=== PATIENT | female | born 1995 | race Caucasian/White ===

== ENCOUNTER 2019-06-09 12:36 | Emergency (ER) | payer MEDICAID ==
--- NOTE | 2019-06-09 12:58 | EDM.PDOC ---
ED HPI GENERAL MEDICAL PROBLEM - General Stated Complaint: HURT LEFT FOOT Time Seen by Provider: 06/09/19 12:57 Source of Information: Reports: Patient History Limitations: Reports: No Limitations - History of Present Illness INITIAL COMMENTS - FREE TEXT/NARRATIVE: 24-year-old female reports that she was going to get up off of her ottoman at approximately noon today and she went to step on her left foot and is judged the height that she had to go down 2 feet and stepped on awkwardly and twisted foot and ankle and fell forward catching himself with hands. She states that she had immediate pain over the left foot and some in the left ankle and reports that pain is an 8/10. It is a constant cramping type pain with throbbing. No pain in her lower leg or knee. There were no other injuries. No head injury. No loss of consciousness. No back or neck pain. No open wounds. She presents via private vehicle. There are no other associated signs or symptoms. There are no other modifying factors. 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) Left Foot Pain Score (Numeric/FACES): 8 - Related Data Allergies Allergy/AdvReac Type Severity Reaction Status Date / Time No Known Allergies Allergy Verified 05/22/19 11:35 Home Meds: Home Meds Acetaminophen/HYDROcodone [Stroud 325-5 MG] 1 - 2 tab PO Q6H PRN #14 tab [Rx] Omeprazole 20 mg PO DAILY 06/09/19 [History] Past Medical History Gastrointestinal History: Reports: GERD - Past Surgical History HEENT Surgical History: Reports: Myringotomy w Tube(s) (As a child) Social & Family History - Tobacco Use Smoking Status *Q: Current Every Day Smoker - Alcohol Use Alcohol Use Frequency: Socially (On weekends) - Living Situation & Occupation Living situation: Reports: with Significant Other Occupation: Employed (Works for [employer]) Review of Systems - Review of Systems Review Of Systems: See Below Constitutional: Reports: No Symptoms Eyes: Reports: No Symptoms Ears: Reports: No Symptoms Nose: Reports: Congestion Mouth/Throat: Reports: No Symptoms Respiratory: Reports: No Symptoms Cardiovascular: Reports: No Symptoms GI/Abdominal: Reports: No Symptoms Genitourinary: Reports: No Symptoms Musculoskeletal: Reports: Foot Pain (Left foot), Other (Some left ankle pain) Skin: Reports: No Symptoms Neurological: Reports: No Symptoms ED EXAM, GENERAL - Physical Exam Exam: See Below Exam Limited By: No Limitations General Appearance: Alert, WD/WN, Mild Distress Eye Exam: Bilateral Eye: EOMI, Normal Inspection Ears: Normal External Exam, Hearing Grossly Normal Ear Exam: Bilateral Ear: Auricle Normal Nose: No Blood, Nasal Drainage Throat/Mouth: Normal Inspection, Normal Oropharynx, Normal Voice, No Airway Compromise Head: Atraumatic, Normocephalic Neck: Normal Inspection, Supple, Non-Tender, Full Range of Motion Respiratory/Chest: No Respiratory Distress, Lungs Clear, Normal Breath Sounds, No Accessory Muscle Use, Chest Non-Tender Cardiovascular: Normal Peripheral Pulses, Regular Rate, Rhythm, No Murmur Peripheral Pulses: 2+: Radial (L), Radial (R), Dorsalis Pedis (L) GI/Abdominal: Normal Bowel Sounds, Soft, Non-Tender, No Mass Back Exam: Normal Inspection, Full Range of Motion Neurological: Alert, Oriented, CN II-XII Intact, Normal Cognition, No Motor/ Sensory Deficits Skin Exam: Warm, Dry, Intact, Normal Color, No Rash Course - Vital Signs Last Recorded V/S: Last Vital Signs Temp 36.3 C 06/09/19 12:56 Pulse 84 06/09/19 12:56 Resp 16 06/09/19 12:56 BP 122/81 06/09/19 12:56 Pulse Ox 99 06/09/19 12:56 - Orders/Labs/Meds Orders: Active Orders 24 hr Category Date Time Status Ankle Min 3V Lt [CR] Stat Exams 06/09/19 13:06 Taken Foot Comp Min 3V Lt [CR] Stat Exams 06/09/19 13:06 Taken Meds: Medications Discontinued Medications Generic Name Dose Route Start Last Admin Trade Name Freq PRN Reason Stop Dose Admin Ibuprofen 800 mg 06/09/19 13:06 06/09/19 13:32 Motrin PO 06/09/19 13:07 800 mg ONETIME ONE Administration - Radiology Interpretation Free Text/Narrative:: X-ray of left ankle shows no definite fracture or dislocation. X-ray of left foot shows an oblique, mid shaft fracture of the left fifth metatarsal. - Re-Assessments/Exams Free Text/Narrative Re-Assessment/Exam: 06/09/19 13:55: Patient has a left fifth metatarsal fracture. I will place her in an orthotic boot and also place her on crutches with no weightbearing on her left foot. I did call us her case with Dianne Moscoso, FABRIZIO at [facility] and she will arrange for the patient to be seen by Dr. Martinez, zipper cutter at [facility]. I will also give the patient a prescription of hydrocodone 5/325 for more severe pain. Departure - Departure Time of Disposition: 14:10 Disposition: Home, Self-Care 01 Condition: Good Clinical Impression: Fracture of fifth metatarsal bone of left foot Qualifiers: Encounter type: initial encounter Fracture type: closed Fracture alignment: displaced Qualified Code(s): S92.352A - Displaced fracture of fifth metatarsal bone, left foot, initial encounter for closed fracture Fall as cause of accidental injury at home as place of occurrence Qualifiers: Encounter type: initial encounter Qualified Code(s): W19.XXXA - Unspecified fall, initial encounter; Y92.009 - Unspecified place in unspecified non- institutional (private) residence as the place of occurrence of the external cause - Discharge Information Prescriptions: Acetaminophen/HYDROcodone [Stroud 325-5 MG] 1 - 2 tab PO Q6H PRN #14 tab PRN Reason: Moderate to severe pain Instructions: Crutch Use, Adult, [id number], Metatarsal Fracture Referrals: Yeni Sargent MD [Primary Care Provider] - Forms: ED Return to Work/School Form Additional Instructions: You have a fracture of your left lateral foot. It is in the middle of the bone along the lateral aspect of your left foot and it is somewhat displaced. You need to use the crutches with no weightbearing on your left foot until cleared by your zipper cutter. Use the boot at all times unless you are cleaning your foot , ankle or leg. Elevate your left foot higher than your heart as often as possible. Apply ice packs intermittently to your left foot for the next 2-3 days. You may take ibuprofen 800 mg by mouth every 8 hours as needed for pain. Medication as prescribed for more severe pain (hydrocodone 5/325). You have an appointment with Dr. Martinez, zipper cutter at the orthopedic clinic on 2019 at 11:20 AM at the orthopedic department at [facility] at [address] if you need further help with directions or if questions, you can call . Back to the emergency department for redness, swelling or pain extending up the leg or any other concerning sign or symptom. Sepsis Event Note - Evaluation Sepsis Screening Result: No Definite Risk - Focused Exam Vital Signs: Vital Signs Temp Pulse Resp BP Pulse Ox 06/09/19 12:56 36.3 C 84 16 122/81 99 Date Exam was Performed: 06/09/19 Time Exam was Performed: 13:58 - My Orders Last 24 Hours: My Active Orders 06/09/19 13:06 Ankle Min 3V Lt [CR] Stat Foot Comp Min 3V Lt [CR] Stat - Assessment/Plan Last 24 Hours: My Active Orders 06/09/19 13:06 Ankle Min 3V Lt [CR] Stat Foot Comp Min 3V Lt [CR] Stat
[2019-06-09] MEDS ORDERED: Ibuprofen 800 MG Tab PO ONE (13:06)
--- NOTE | 2019-06-09 16:09 | CR ---
INDICATION: Fall with injury. LEFT FOOT: Three views of the left foot were obtained 06/09/19 - no comparisons. A spiral fracture of the mid to distal shaft of the 5th metatarsal is noted with very minimal lateral angulation of the proximal fracture fragment producing offset of approximately 1.5 to 2 mm laterally and 1.5 to 2 mm plantar offset also seen. Adequate position and alignment are suggested. Overlying soft tissue swelling is noted at the fracture site and 5th metatarsophalangeal joint area. No other bone or joint abnormality was identified. IMPRESSION: Fracture of the 5th metatarsal with adequate position and alignment is suggested. MTDD
--- NOTE | 2019-06-09 16:10 | CR ---
INDICATION: Fall with injury. LEFT ANKLE: Three views of the left ankle revealed no evidence of a fracture, dislocation or other significant bone or joint abnormality. No swelling is noted at the ankle mortise, which appears to be intact. YOCASTAD
== END 2019-06-09 14:38 | disposition home or self-care (01) ==
LOC: FB.ED 12:36
DX: S92.352A Displaced fracture of fifth metatarsal bone, left foot, initial encounter for closed fracture (principal); F17.200 Nicotine dependence, unspecified, uncomplicated; K21.9 Gastro-esophageal reflux disease without esophagitis; Z79.899 Other long term (current) drug therapy; W19.XXXA Unspecified fall, initial encounter; Y92.009 Unspecified place in unspecified non-institutional (private) residence as the place of occurrence of the external cause
CPT/HCPCS: 73610; 73630; 99283; A9270

== ENCOUNTER 2020-09-21 14:27 | Emergency (ER) | payer MEDICAID ==
--- NOTE | 2020-09-21 15:13 | EDM.PDOC ---
ED HPI GENERAL MEDICAL PROBLEM - General Chief Complaint: Lower Extremity Injury/Pain Stated Complaint: POSSIBLE BROKEN TOE Time Seen by Provider: 09/21/20 14:55 Source of Information: Reports: Patient History Limitations: Reports: No Limitations - History of Present Illness INITIAL COMMENTS - FREE TEXT/NARRATIVE: States she stubbed her left foot on the wall at home , has pain swelling and deformity of the 4th and 5th toes. Onset: Today Onset Time: 09:30 Duration: Getting Worse Location: Reports: Lower Extremity, Left Quality: Reports: Ache Improves with: Reports: None Worsens with: Reports: Movement Context: Reports: Trauma Associated Symptoms: Reports: No Other Symptoms - Related Data Allergies Allergy/AdvReac Type Severity Reaction Status Date / Time bee venom protein (honey bee) Allergy Swelling Verified 09/21/20 14:58 latex Allergy Hives Verified 09/21/20 14:58 Sulfa (Sulfonamide Allergy Hives Verified 09/21/20 14:58 Antibiotics) Home Meds: Home Meds NK [No Known Home Meds] 09/21/20 [History] Past Medical History Gastrointestinal History: Reports: GERD - Past Surgical History HEENT Surgical History: Reports: Myringotomy w Tube(s) (As a child) Social & Family History - Family History Family Medical History: No Pertinent Family History - Caffeine Use Caffeine Use: Reports: Coffee, Soda - Living Situation & Occupation Living situation: Reports: with Significant Other Occupation: Employed (Works for [employer]) Review of Systems - Review of Systems Review Of Systems: See Below Constitutional: Reports: No Symptoms Eyes: Reports: No Symptoms Ears: Reports: No Symptoms Nose: Reports: No Symptoms Mouth/Throat: Reports: No Symptoms Respiratory: Reports: No Symptoms Cardiovascular: Reports: No Symptoms GI/Abdominal: Reports: No Symptoms Genitourinary: Reports: No Symptoms Musculoskeletal: Reports: Foot Pain Skin: Reports: No Symptoms Neurological: Reports: No Symptoms Psychiatric: Reports: No Symptoms ED EXAM, GENERAL - Physical Exam Exam: See Below Exam Limited By: No Limitations General Appearance: Alert, WD/WN, No Apparent Distress Eye Exam: Bilateral Eye: EOMI Ears: Normal TMs Nose: Normal Inspection Throat/Mouth: Normal Oropharynx Head: Atraumatic, Normocephalic Neck: Supple, Non-Tender Respiratory/Chest: No Respiratory Distress, Lungs Clear, Normal Breath Sounds Cardiovascular: Regular Rate, Rhythm Peripheral Pulses: 2+: Dorsalis Pedis (L), Dorsalis Pedis (R) GI/Abdominal: Soft, Non-Tender Extremities: Joint Swelling, Limited Range of Motion, Other (Ecchymosis of the base of the 4th and 5th toes on the left) Neurological: Alert, Oriented, CN II-XII Intact Skin Exam: Ecchymosis (left foot) Lymphatic: No Adenopathy Course - Vital Signs Last Recorded V/S: Last Vital Signs Temp 37.4 C 09/21/20 14:27 Pulse 78 09/21/20 16:30 Resp 16 09/21/20 16:30 BP 133/78 09/21/20 16:30 Pulse Ox 95 09/21/20 16:30 - Orders/Labs/Meds Orders: Active Orders 24 hr Category Date Time Status Foot Comp Min 3V Lt [CR] Stat Exams 09/21/20 15:00 Taken Departure - Departure Time of Disposition: 17:00 Disposition: Home, Self-Care 01 Condition: Fair Clinical Impression: Fracture of metatarsal bone of left foot, Closed fracture of phalanx of foot - Discharge Information *PRESCRIPTION DRUG MONITORING PROGRAM REVIEWED*: Not Applicable *COPY OF PRESCRIPTION DRUG MONITORING REPORT IN PATIENT AZAM: Not Applicable Instructions: Toe Fracture, [id number] Referrals: Yeni Sargent MD [Primary Care Provider] - Forms: ED Department Discharge Sepsis Event Note (ED) - Focused Exam Vital Signs: Vital Signs Temp Pulse Resp BP Pulse Ox 09/21/20 16:30 78 16 133/78 95 09/21/20 14:27 37.4 C 77 16 131/70 95 - My Orders Last 24 Hours: My Active Orders 09/21/20 15:00 Foot Comp Min 3V Lt [CR] Stat - Assessment/Plan Last 24 Hours: My Active Orders 09/21/20 15:00 Foot Comp Min 3V Lt [CR] Stat
== END 2020-09-21 17:00 | disposition home or self-care (01) ==
LOC: FB.ED 14:27
DX: S92.342A Displaced fracture of fourth metatarsal bone, left foot, initial encounter for closed fracture (principal); S92.352A Displaced fracture of fifth metatarsal bone, left foot, initial encounter for closed fracture; Z91.030 Bee allergy status; Z91.040 Latex allergy status; Z88.2 Allergy status to sulfonamides; W22.8XXA Striking against or struck by other objects, initial encounter; Y92.009 Unspecified place in unspecified non-institutional (private) residence as the place of occurrence of the external cause
CPT/HCPCS: 73630-LT; 99283-25

== ENCOUNTER 2020-11-28 15:59 | Emergency (ER) | payer MEDICAID ==
[2020-11-28] MEDS ORDERED: Sodium Chloride 0.9% 10 ML Syringe FLUSH PRN (16:19)
[2020-11-28] MEDS: Sodium Chloride 0.9% 1,000 ML IV SCH (16:40)
[2020-11-28] MEDS: Ondansetron 4 MG/2 ML SDV IVPUSH STA (16:42)
[2020-11-28] MEDS: Ketorolac 30 MG/ML SDV IVPUSH STA (16:50)
[2020-11-28] MEDS: LORazepam 2 MG/ML SDV IVPUSH STA (16:50)
--- NOTE | 2020-11-28 17:14 | CR ---
INDICATION: Dyspnea. CHEST SINGLE VIEW 43282: An AP upright portable view of the chest was obtained 11/28/20 - no comparisons. The heart and mediastinum and, for the post part, the bony structures appear to be intact with very minimal dextroconvex scoliosis at the lower thoracic spine. A definite active infiltrate or effusion was not identified, although there is some increase in interstitial markings raising question of active interstitial disease versus fibrosis, possibly of edema or infection would be considerations - correlate clinically. No consolidating pneumonia or effusion was seen, however. MTDD
--- NOTE | 2020-11-28 17:57 | EDM.PDOC ---
ED HPI GENERAL MEDICAL PROBLEM - General Chief Complaint: Gastrointestinal Problem Stated Complaint: COVID SYMPTOMS Time Seen by Provider: 11/28/20 16:05 Source of Information: Reports: Patient History Limitations: Reports: No Limitations - History of Present Illness INITIAL COMMENTS - FREE TEXT/NARRATIVE: Patient presented to the ED because of headache, N/V/D, fever and chills which all started this morning. The headache is throbbing,7/10, with associated photophobia. She has a history of migraine and have few attacks of migraine a year. Her stool is mostly watery, with cramping abdominal pain. there is no urinary symptoms. She also c/o dyspnea and is hyperventilating upon her arrival in the ED and her oxygen saturation is 99-100% on RA. Head Pain Score (Numeric/FACES): 8 - Related Data Allergies Allergy/AdvReac Type Severity Reaction Status Date / Time bee venom protein (honey bee) Allergy Swelling Verified 09/21/20 14:58 latex Allergy Hives Verified 09/21/20 14:58 Sulfa (Sulfonamide Allergy Hives Verified 09/21/20 14:58 Antibiotics) Home Meds: Home Meds Ibuprofen 800 mg PO Q8H PRN #30 tablet 11/28/20 [Rx] Loratadine [Claritin] 1 tab PO DAILY 11/28/20 [History] Multivitamin 1 tab PO DAILY 11/28/20 [History] Ondansetron [Zofran ODT] 4 mg PO Q4H PRN #5 tab.dis 11/28/20 [Rx] Past Medical History Gastrointestinal History: Reports: GERD 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: Musculoskeletal History: Reports: Fracture - Past Surgical History HEENT Surgical History: Reports: Myringotomy w Tube(s) Social & Family History - Family History Family Medical History: No Pertinent Family History - Tobacco Use Tobacco Use Status *Q: Current Every Day Tobacco User Years of Tobacco use: 10 Packs/Tins Daily: 0.5 - Caffeine Use Caffeine Use: Reports: Coffee, Energy Drinks, Soda, Tea - Recreational Drug Use Recreational Drug Use: No - Living Situation & Occupation Living situation: Reports: with Significant Other Occupation: Employed (Works for [employer]) ED ROS GENERAL - Review of Systems Review Of Systems: See Below Constitutional: Reports: Fever, Chills HEENT: Reports: No Symptoms Respiratory: Reports: Shortness of Breath, Cough Cardiovascular: Reports: No Symptoms Endocrine: Reports: No Symptoms GI/Abdominal: Reports: Diarrhea, Nausea, Vomiting : Reports: No Symptoms Musculoskeletal: Reports: No Symptoms Skin: Reports: No Symptoms Neurological: Reports: No Symptoms Psychiatric: Reports: No Symptoms ED EXAM, GENERAL - Physical Exam Exam: See Below Exam Limited By: No Limitations General Appearance: Alert, No Apparent Distress Eye Exam: Bilateral Eye: PERRL Ears: Normal External Exam, Normal Canal Nose: Normal Inspection, Normal Mucosa, No Blood Throat/Mouth: Normal Inspection, Normal Lips, Normal Teeth Head: Atraumatic, Normocephalic Neck: Normal Inspection, Supple, Non-Tender, Full Range of Motion Respiratory/Chest: No Respiratory Distress, Lungs Clear, Normal Breath Sounds, No Accessory Muscle Use Cardiovascular: Normal Peripheral Pulses, Regular Rate, Rhythm, No Edema GI/Abdominal: Soft, Non-Tender, Other (hyperactive BS) Extremities: Normal Inspection, Normal Range of Motion Neurological: Alert, Oriented, CN II-XII Intact Psychiatric: Anxious Course - Vital Signs Text/Narrative:: Lab/CXR result was reviewed and discussed with patient NS 1 L Bolus Ativan 1 mg IV x1 Toradol 30 mg IV x1 Zofran 4 mg IV x1 Last Recorded V/S: Last Vital Signs Temp 36.8 C 11/28/20 16:00 Pulse 90 11/28/20 16:00 Resp 20 11/28/20 16:00 BP 143/59 H 11/28/20 16:00 Pulse Ox 100 11/28/20 16:00 - Orders/Labs/Meds Orders: Active Orders 24 hr Category Date Time Status HCG QUALITATIVE,URINE [URCHEM] Stat Lab 11/28/20 16:19 Ordered UA W/MICROSCOPIC [URIN] Stat Lab 11/28/20 16:19 Ordered Sodium Chloride 0.9% [Normal Saline] 1,000 ml Med 11/28/20 16:30 Active IV ASDIRECTED Sodium Chloride 0.9% [Saline Flush] Med 11/28/20 16:19 Active 10 ml FLUSH ASDIRECTED PRN Saline Lock Insert [OM.PC] Routine Oth 11/28/20 16:19 Ordered Medication Orders Sodium Chloride (Normal Saline) 1,000 mls @ 999 mls/hr IV ASDIRECTED ROMMEL Last Admin: 11/28/20 16:40 Dose: 999 mls/hr Documented by: BANG Sodium Chloride (Sodium Chloride 0.9% 10 Ml Syringe) 10 ml FLUSH ASDIRECTED PRN PRN Reason: Keep Vein Open Labs: Laboratory Tests 11/28/20 11/28/20 11/28/20 Range/Units 16:48 16:48 16:48 WBC 11.4 H (3.0-10.3) x10-3/uL RBC 4.36 (3.60-5.20) x10(6)uL Hgb 13.5 (11.4-15.5) g/dL Hct 40.3 (34.2-48.2) % MCV 92.4 (76.7-100.5) fL MCH 30.9 (23.9-33.9) pg MCHC 33.4 (31.9-34.8) g/dL RDW 12.6 (12.3-16.5) % Plt Count 231 (151-488) x10(3)uL MPV 8.9 (7.1-12.4) fL Add Manual Diff Yes Neutrophils % (Manual) 91 H (46-82) % Lymphocytes % (Manual) 6 L (13-37) % Monocytes % (Manual) 3 L (4-12) % D-Dimer, Quantitative 0.45 (0.0-0.59) mg/LFEU Sodium 141 (135-145) mmol/L Potassium 3.7 (3.5-5.3) mmol/L Chloride 107 (100-110) mmol/L Carbon Dioxide 17 L (21-32) mmol/L BUN 12 (7-18) mg/dL Creatinine 1.1 H (0.55-1.02) mg/dL Est Cr Clr Drug Dosing 80.99 mL/min Estimated GFR (MDRD) > 60 (>60) BUN/Creatinine Ratio 10.9 (9-20) Glucose 132 H (80-116) mg/dL Calcium 9.7 (8.6-10.2) mg/dL Total Bilirubin 1.0 (0.1-1.3) mg/dL AST 15 (5-25) IU/L ALT 24 (12-36) U/L Alkaline Phosphatase 62 (56-112) IU/L Troponin I (4.0-60.3) pg/mL Total Protein 7.7 (6.0-8.0) g/dL Albumin 4.2 (3.5-5.2) g/dL Globulin 3.5 g/dL Albumin/Globulin Ratio 1.2 SARS-CoV-2 RNA (JOSUÉ) (NEGATIVE) 11/28/20 11/28/20 Range/Units 16:48 16:58 WBC (3.0-10.3) x10-3/uL RBC (3.60-5.20) x10(6)uL Hgb (11.4-15.5) g/dL Hct (34.2-48.2) % MCV (76.7-100.5) fL MCH (23.9-33.9) pg MCHC (31.9-34.8) g/dL RDW (12.3-16.5) % Plt Count (151-488) x10(3)uL MPV (7.1-12.4) fL Add Manual Diff Neutrophils % (Manual) (46-82) % Lymphocytes % (Manual) (13-37) % Monocytes % (Manual) (4-12) % D-Dimer, Quantitative (0.0-0.59) mg/LFEU Sodium (135-145) mmol/L Potassium (3.5-5.3) mmol/L Chloride (100-110) mmol/L Carbon Dioxide (21-32) mmol/L BUN (7-18) mg/dL Creatinine (0.55-1.02) mg/dL Est Cr Clr Drug Dosing mL/min Estimated GFR (MDRD) (>60) BUN/Creatinine Ratio (9-20) Glucose (80-116) mg/dL Calcium (8.6-10.2) mg/dL Total Bilirubin (0.1-1.3) mg/dL AST (5-25) IU/L ALT (12-36) U/L Alkaline Phosphatase (56-112) IU/L Troponin I < 4.0 L (4.0-60.3) pg/mL Total Protein (6.0-8.0) g/dL Albumin (3.5-5.2) g/dL Globulin g/dL Albumin/Globulin Ratio SARS-CoV-2 RNA (JOSUÉ) Negative (NEGATIVE) Meds: Medications Generic Name Dose Route Start Last Admin Trade Name Freq PRN Reason Stop Dose Admin Sodium Chloride 1,000 mls @ 999 mls/hr 11/28/20 16:30 11/28/20 16:40 Normal Saline IV 999 mls/hr ASDIRECTED ROMMEL Administration Sodium Chloride 10 ml 11/28/20 16:19 Sodium Chloride 0.9% 10 Ml Syringe FLUSH ASDIRECTED PRN Keep Vein Open Discontinued Medications Generic Name Dose Route Start Last Admin Trade Name Marco Antonio PRN Reason Stop Dose Admin Ketorolac Tromethamine 30 mg 11/28/20 16:28 11/28/20 16:50 Ketorolac 30 Mg/Ml Sdv IVPUSH 11/28/20 16:29 30 mg NOW STA Administration Lorazepam 1 mg 11/28/20 16:28 11/28/20 16:50 Lorazepam 2 Mg/Ml Sdv IVPUSH 11/28/20 16:29 1 mg NOW STA Administration Ondansetron HCl 4 mg 11/28/20 16:21 11/28/20 16:42 Ondansetron 4 Mg/2 Ml Sdv IVPUSH 11/28/20 16:22 4 mg NOW STA Administration Departure - Departure Time of Disposition: 18:15 Disposition: Home, Self-Care 01 Condition: Good Clinical Impression: Panic attack, Migraine, Acute gastroenteritis, Gastroenteritis - Discharge Information Prescriptions: Ibuprofen 800 mg PO Q8H PRN #30 tablet PRN Reason: Pain Ondansetron [Zofran ODT] 4 mg PO Q4H PRN #5 tab.dis PRN Reason: Nausea Instructions: Panic Attack, Ssau-uy-Fefm, Dehydration, Adult, Ilex-wy-Iril, Chronic Migraine Headache, [id number] Referrals: Yeni Sargent MD [Primary Care Provider] - Forms: ED Department Discharge Additional Instructions: Please read discharge instructions on Migraine, Panic Attack, Gastroenteritis Frequent hand washing Take ibuprofen 800 mg with tylenol 1000 mg every 8 hours as needed for pain Zofran ODT 4 mg every 4 hours as needed for nausea Imodium(over the counter) 2 tablets every 6 hours as needed for diarrhea Follow up as needed Sepsis Event Note (ED) - Evaluation Sepsis Screening Result: No Definite Risk - Focused Exam Vital Signs: Vital Signs Temp Pulse Resp BP Pulse Ox 11/28/20 16:00 36.8 C 90 20 143/59 H 100 - My Orders Last 24 Hours: My Active Orders 11/28/20 16:19 HCG QUALITATIVE,URINE [URCHEM] Stat UA W/MICROSCOPIC [URIN] Stat Sodium Chloride 0.9% [Saline Flush] 10 ml FLUSH ASDIRECTED PRN Saline Lock Insert [OM.PC] Routine 11/28/20 16:30 Sodium Chloride 0.9% [Normal Saline] 1,000 ml IV ASDIRECTED - Assessment/Plan Last 24 Hours: My Active Orders 11/28/20 16:19 HCG QUALITATIVE,URINE [URCHEM] Stat UA W/MICROSCOPIC [URIN] Stat Sodium Chloride 0.9% [Saline Flush] 10 ml FLUSH ASDIRECTED PRN Saline Lock Insert [OM.PC] Routine 11/28/20 16:30 Sodium Chloride 0.9% [Normal Saline] 1,000 ml IV ASDIRECTED
== END 2020-11-28 18:25 | disposition home or self-care (01) ==
LOC: FB.ED 15:59
DX: G43.909 Migraine, unspecified, not intractable, without status migrainosus (principal); K52.9 Noninfective gastroenteritis and colitis, unspecified; F41.0 Panic disorder [episodic paroxysmal anxiety]; Z72.0 Tobacco use; Z91.030 Bee allergy status; Z91.040 Latex allergy status; Z88.2 Allergy status to sulfonamides; Z79.899 Other long term (current) drug therapy; Z20.822 Contact with and (suspected) exposure to COVID-19
CPT/HCPCS: 71045; 80053; 84484; 85025; 85379; 87635; 96374; 96375; 99284; J1885; J2060; J2405; J7030; U0002

== ENCOUNTER 2021-12-19 19:57 | Emergency (ER) | payer MEDICAID ==
[2021-12-19] MEDS ORDERED: Ketorolac 30 MG/ML SDV IM ONE (20:06)
== END 2021-12-19 21:30 | disposition home or self-care (01) ==
LOC: FB.ED 19:57
DX: G89.18 Other acute postprocedural pain (principal); Z91.030 Bee allergy status; Z91.040 Latex allergy status; Z88.2 Allergy status to sulfonamides
CPT/HCPCS: 36415; 71046; 85027; 85379; 96372; 99283; 99285; J1885